=== PATIENT | male | born 1965 | race Caucasian/White ===

== ENCOUNTER 2019-01-01 09:30 | Day surgery (SDC) | payer SELFPAY ==
[2019-01-01] MEDS ORDERED: FOLIC ACID INJ 1 MG, THIAMINE INJ 100 MG, MAGNESIUM SULFATE 2 GM, MULTIVITAMIN 10 ML in... IV STA ×5 (10:19)
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
[2019-01-01 10:57] LABS: BASOPHILS # (AUTO) 0.1 10^3/uL (0.0-0.1); BASOPHILS % (AUTO) 0.5 %; EOSINOPHILS # (AUTO) 0.1 10^3/uL (0.0-0.7); EOSINOPHILS % (AUTO) 0.9 %; HGB - HEMOGLOBIN 16.3 g/dL (14.0-18.0); LYMPHOCYTES # (AUTO) 2.6 10^3/uL (1.5-3.5); LYMPHOCYTES % (AUTO) 21.7 %; MEAN CORPUSCULAR HGB CONC 33.5 g/dL (32.0-36.0); MEAN CORPUSCULAR VOLUME 92.5 fL (80.0-94.0); MONOCYTES # (AUTO) 0.8 10^3/uL (0.0-1.0); MONOCYTES % (AUTO) 6.5 %; NEUTROPHILS # (AUTO) 8.5 10^3/uL (1.5-6.6); NEUTROPHILS % (AUTO) 70.4 %; PLT - PLATELET COUNT 365 10^3/uL (130-450); RED BLOOD COUNT 5.27 10^6/uL (4.70-6.10); RED CELL DISTRIBUTION WIDTH 14.9 % (12.0-15.0); WHITE BLOOD COUNT 12.1 x10^3/uL (4.8-10.8)
[2019-01-01 11:10] LABS: ALBUMIN 4.9 g/dL (3.2-5.5); ALBUMIN/GLOBULIN RATIO 1.4 (1.0-2.2); BILIRUBIN,TOTAL 1.6 mg/dL (0.2-1.0); TOTAL PROTEIN 8.4 g/dL (6.7-8.2)
[2019-01-01] MEDS ORDERED: SODIUM CHLORIDE 0.9% 1,000 ML IV ONE (12:11)
--- NOTE | 2019-01-01 13:03 | ANESTHESIA ---
Pre-Anesthesia VS, & Labs - Diagnosis foreign body in esophagus - Procedure egd Vital Signs: Temp Pulse Resp BP Pulse Ox 36.7 C 108 H 16 125/89 H 98 01/01/19 12:17 01/01/19 12:17 01/01/19 12:17 01/01/19 12:17 01/01/19 12:17 Height 5 ft 10 in Weight (kg) 77.111 kg Body Mass Index 24.3 - NPO >8 hours - Lab Results Current Lab Results: Laboratory Tests 01/01/19 10:50: Troponin I < 0.04 01/01/19 10:50: Sodium 142, Potassium 4.7, Chloride 103, Carbon Dioxide 19 L, Anion Gap 20.0 H, BUN 23 H, Creatinine 1.0, Estimated GFR (MDRD) 79 L, Glucose 75, Calcium 10.0, Total Bilirubin 1.6 H, AST 29, ALT 25, Alkaline Phosphatase 51, Total Protein 8.4 H, Albumin 4.9, Globulin 3.5, Albumin/Globulin Ratio 1.4, Lipase 28 01/01/19 10:50: WBC 12.1 H, RBC 5.27, Hgb 16.3, Hct 48.7, MCV 92.5, MCH 31.0, MCHC 33.5, RDW 14.9, Plt Count 365, MPV 7.0 L, Neut # (Auto) 8.5 H, Lymph # (Auto) 2.6, [place] # (Auto) 0.8, Eos # (Auto) 0.1, Baso # (Auto) 0.1, Absolute Nucleated RBC 0.00, Nucleated RBC % 0.0 Fish Bones: 01/01/19 10:50 01/01/19 10:50 Home Medications and Allergies Allergies/Adverse Reactions: Allergies Allergy/AdvReac Type Severity Reaction Status Date / Time No Known Drug Allergies Allergy Verified 01/01/19 09:47 Anes History & Medical History - Anesthetic History Anesthesia Complications: reports: No previous complications Family history of Anesthesia Complications: Denies Family history of Malignant Hyperthermia: Denies - Medical History Cardiovascular: reports: Hypertension Gastrointestinal: reports: Other Smoking Status: Current every day smoker Other Past Medical History: food bolus - Surgical History Orthopedic: Knee replacement, Shoulder arthroplasty Exam General: Alert, Oriented x3, Cooperative, No acute distress, Other (no teeth) Mouth Openin Fingerbreadth Neck Mobility: Normal Mallampati classification: II Thyromental Distance: greater than 6 cm Respiratory: Lungs clear, Normal breath sounds, No respiratory distress, No accessory muscle use Cardiovascular: Regular rate, Normal S1, Normal S2, No murmurs Plan Anesthesia Type: MAC Consent for Procedure(s) Verified and Reviewed: No Code Status: Attempt Resuscitation ASA classification: 2-Mild systemic disease Is this case an emergency?: Yes
[2019-01-01] MEDS ORDERED: LIDO GARGLE 30 ML BOTTLE ONE (13:29)
[2019-01-01] MEDS ORDERED: LACTATED RINGERS 1,000 ML IV ONE (13:29)
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
[2019-01-01] MEDS ORDERED: LIDO GARGLE 30 ML BOTTLE PO ONE (13:43)
[2019-01-01] MEDS ORDERED: PROPOFOL 200 MG/20 ML VIAL IVP ONE (14:04)
[2019-01-01 14:29] VITALS: BP 140/79
--- NOTE | 2019-01-01 19:49 | XRAY Report ---
Reason: chest pain Procedure Date: 01/01/2019 Accession Number: [id number] / [id number] Procedure: XR - Chest 1 View X-Ray CPT Code: 40139 FULL RESULT: EXAM: CHEST RADIOGRAPHY EXAM DATE: 01/01/2019 12:30 PM. CLINICAL HISTORY: Chest pain. COMPARISON: None. TECHNIQUE: 1 view. FINDINGS: Lungs/Pleura: No focal opacities evident. No pleural effusion. No pneumothorax. Mediastinum: Within exam limitations, the cardiomediastinal contour is normal. Other: None. IMPRESSION: Negative chest RADIA
== END 2019-01-01 13:01 | disposition home or self-care (01) ==
LOC: ED 09:30 → SDS 13:00
PROVIDERS: ATTEND Internal Medicine Gastroenterology
PROC: 0DB38ZX Excision of Lower Esophagus, Via Natural or Artificial Opening Endoscopic, Diagnostic (ICD-10-PCS; principal; 2019-01-01 13:30)
DX: R13.19 Other dysphagia (principal); K22.10 Ulcer of esophagus without bleeding; K20.9 Esophagitis, unspecified; T28 Burn and corrosion of other internal organs; E86.0 Dehydration; I10 Essential (primary) hypertension; F11.21 Opioid dependence, in remission; F17.210 Nicotine dependence, cigarettes, uncomplicated; G89.29 Other chronic pain; M54.5 Low back pain; Z72.89 Other problems related to lifestyle; F41.9 Anxiety disorder, unspecified; F32.9 Major depressive disorder, single episode, unspecified; Z96.659 Presence of unspecified artificial knee joint; T79.8XXS Other early complications of trauma, sequela
CPT/HCPCS: 36415; 43239; 71045; 80053; 83690; 84484; 85025; 96365; 99284; A9270; J3411; J7120